=== PATIENT | male | born 1990 | race Caucasian/White ===

== ENCOUNTER 2017-05-11 02:56 | Emergency (ER) | payer OTHER ==
[~2017-05-11] VITALS: Ht 170.2 cm; Wt 86.2 kg
[2017-05-11 02:58] VITALS: BP_SYST 161
[2017-05-11 03:17] VITALS: BP_SYST 161
== END 2017-05-11 03:10 ==
LOC: SED 02:56
DX: Z02.89 Encounter for other administrative examinations (principal)